=== PATIENT | female | born 1945 | race African-American/Black ===

== ENCOUNTER 2024-12-10 20:34 | Emergency (ER) | payer OTHER ==
[~2024-12-10] VITALS: Ht 167.6 cm; Wt 77.0 kg
[2024-12-10 23:44] LABS: HEMATOCRIT. 39.9 % (36.0-48.0); HEMOGLOBIN. 13.4 g/dL (12.0-16.0); MEAN CORPUSCULAR HEMOGLOBIN 31.5 pg (28.0-32.0); MEAN CORPUSCULAR HGB CONC 33.7 g/dL (31.0-37.0); MEAN CORPUSCULAR VOLUME 93.4 fL (81.0-99.0); MEAN PLATELET VOLUME 7.3 fl (7.4-10.4); MONOCYTES % 10.2 % (2.0-8.0); NEUTROPHILS % 69.8 % (40.0-76.0); PLATELET 249 x1000/uL (130-400); RED BLOOD CELL COUNT 4.27 mill/uL (4.2-5.4); WHITE BLOOD COUNT 4.9 x1000/uL (4.5-11.0)
[2024-12-10 23:48] LABS: CHLORIDE 101 mEq/L (98-107); POTASSIUM 3.6 mEq/L (3.5-5.1); SODIUM 140 mEq/L (136-145)
[2024-12-10 23:49] LABS: CARBON DIOXIDE 29 mEq/L (21-32)
[2024-12-10 23:50] LABS: CALCIUM 9.3 mg/dL (8.7-10.4)
[2024-12-10 23:54] LABS: CREATININE 0.7 mg/dL (0.6-1.0); GLUCOSE 99 mg/dL (70-105); UREA NITROGEN BLOOD 13 mg/dL (9-23)
[2024-12-10 23:56] LABS: TROPONIN I HIGH SENSITIVITY 5 ng/L (3.0-34)
[2024-12-11 02:18] VITALS: PULSE 74; RESP 15; O2SAT 96
[2024-12-11] MEDS: IPRATROPIUM BROMIDE (0.02%) 0.5MG/2.5ML NEB HHN STA (02:18)
[2024-12-11] MEDS: ALBUTEROL (0.083%) 2.5MG/3ML NEB HHN STA (02:18)
[2024-12-11] MEDS: IPRATROPIUM BROMIDE (0.02%) 0.5MG/2.5ML NEB HHN NR (02:19)
[2024-12-11] MEDS: ALBUTEROL (0.083%) 2.5MG/3ML NEB HHN NR (02:19)
[2024-12-11 04:45] LABS: TROPONIN I HIGH SENSITIVITY 5 ng/L (3.0-34)
[2024-12-11] MEDS: ASPIRIN 325MG TABLET PO ONE (05:31)
[2024-12-11 06:03] VITALS: BP 112/71; PULSE 83; RESP 18; TEMP 36.8; O2SAT 97
== END 2024-12-11 07:03 | disposition short-term general hospital (02) ==
LOC: ER 20:34
DX: R07.89 Other chest pain (principal); J44.89 Other specified chronic obstructive pulmonary disease; I10 Essential (primary) hypertension; J45.909 Unspecified asthma, uncomplicated
CPT/HCPCS: 36415; 71045; 80048; 83605; 83880; 84484; 85025; 93005; 94640; 99285